=== PATIENT | female | born 1960 | race Caucasian/White ===

== ENCOUNTER 2018-11-24 15:23 | Emergency (ER) | payer BC ==
--- NOTE | 2018-11-24 16:48 | RADIOLOGY REPORT (SQ) ---
EXAM DESCRIPTION: CT HEAD WITHOUT COMPLETED DATE/TIME: 11/24/2018 4:36 pm REASON FOR STUDY: Stroke protocol - facial drop that began at 1000 COMPARISON: None. TECHNIQUE: Axial images acquired through the brain without intravenous contrast. Images reviewed wi th bone, brain and subdural windows. Additional sagittal and coronal reconstructions were generated. Images stored on PACS. All CT scanners at this facility use dose modulation, iterative reconstruction, and/or weight based d osing when appropriate to reduce radiation dose to as low as reasonably achievable (ALARA). [facility]: Dose Right [facility]: CareDose [facility]: Dose Right [facility]: Teradose 4D [facility]: Smart Echo it RADIATION DOSE: CT Rad equipment meets quality standard of care and radiation dose reduction techniq ues were employed. CTDIvol: 53.2 mGy. DLP: 964 mGy-cm. mGy. LIMITATIONS: None. FINDINGS: VENTRICLES: Normal size and contour. CEREBRUM: No masses. No hemorrhage. No midline shift. No evidence for acute infarction. Normal gra y/white matter differentiation. No areas of low density in the white matter. CEREBELLUM: No masses. No hemorrhage. No alteration of density. No evidence for acute infarction. EXTRAAXIAL SPACES: Mild age related prominence over the convexities. No hemorrhage or mass or shift. ORBITS AND GLOBE: No intra- or extraconal masses. Normal contour of globe without masses. CALVARIUM: No fracture. PARANASAL SINUSES: No fluid or mucosal thickening. SOFT TISSUES: No mass or hematoma. OTHER: No other significant finding. IMPRESSION: No acute intracranial abnormality. EVIDENCE OF ACUTE STROKE: NO. COMMENT: Quality ID # [id number]: Final reports with documentation of one or more dose reduction techniques (e.g., Automated exposure control, adjustment of the mA and/or kV according to patient size, use of iterative reconstruction technique) TECHNICAL DOCUMENTATION: JOB ID: [id number] [employer]- All Rights Reserved Reading location - IP/workstation name: [email or web address]
--- NOTE | 2018-11-24 16:49 | RADIOLOGY REPORT (SQ) ---
EXAM DESCRIPTION: CHEST SINGLE VIEW COMPLETED DATE/TIME: 11/24/2018 4:37 pm REASON FOR STUDY: Stroke protocol - facial drop that began at 1000 COMPARISON: None available EXAM PARAMETERS: NUMBER OF VIEWS: One view. TECHNIQUE: Single frontal radiographic view of the chest acquired. RADIATION DOSE: NA LIMITATIONS: None. FINDINGS: LUNGS AND PLEURA: No opacities, masses or pneumothorax. No pleural effusion. MEDIASTINUM AND HILAR STRUCTURES: No masses. Contour normal. HEART AND VASCULAR STRUCTURES: Heart normal in size. Normal vasculature. BONES: No acute findings. HARDWARE: None in the chest. OTHER: No other significant finding. IMPRESSION: No evidence of acute cardiopulmonary process. TECHNICAL DOCUMENTATION: JOB ID: [id number] [employer]- All Rights Reserved Reading location - IP/workstation name: [email or web address]
[2018-11-24 16:50] LABS: ABSOLUTE BASOPHILS # (AUTO) 0.1 10^3/uL (0.0-0.2); ABSOLUTE EOSINOPHILS # (AUTO) 0.3 10^3/uL (0.0-0.6); ABSOLUTE LYMPHOCYTES (AUTO) 3.9 10^3/uL (0.5-4.7); ABSOLUTE MONOCYTES (AUTO) 0.4 10^3/uL (0.1-1.4); ABSOLUTE NEUT (AUTO) 3.4 10^3/uL (1.7-8.2); BASOPHILS % (AUTO) 0.8 % (0-2); EOSINOPHILS % (AUTO) 3.3 % (0-6); HEMATOCRIT 44.3 % (36.0-47.0); HEMOGLOBIN 15.1 g/dL (12.0-15.5); LYMPHOCYTES % (AUTO) 47.8 % (13-45); MEAN CORPUSCULAR HEMOGLOBIN 30.6 pg (27.0-33.4); MEAN CORPUSCULAR VOLUME 90 fl (80-97); MONOCYTES % (AUTO) 5.4 % (3-13); PLATELET COUNT 309 10^3/uL (150-450); RED BLOOD COUNT 4.92 10^6/uL (3.72-5.28); RED CELL DISTRIBUTION WIDTH 13.3 % (11.5-14.0); SEGMENTED NEUTROPHILS % (AUTO) 42.7 % (42-78); TOTAL CELLS COUNTED % (AUTO) 100 %; WHITE BLOOD COUNT 8.1 10^3/uL (4.0-10.5)
[2018-11-24 17:01] LABS: INTERNATIONAL RATION (INR) 0.86; PROTHROMBIN TIME 12.2 SEC (11.4-15.4)
[2018-11-24 17:01] LABS: ALANINE AMINOTRANSFERASE 35 U/L (9-52); ALBUMIN 4.4 g/dL (3.5-5.0); ALKALINE PHOSPHATASE 91 U/L (38-126); ANION GAP 13 (5-19); ASPARTATE AMINO TRANSFERASE 25 U/L (14-36); BILIRUBIN,DIRECT 0.3 mg/dL (0.0-0.4); BILIRUBIN,TOTAL 1.2 mg/dL (0.2-1.3); BLOOD UREA NITROGEN 10 mg/dL (7-20); CALCIUM 9.7 mg/dL (8.4-10.2); CARBON DIOXIDE 24 mmol/L (22-30); CHLORIDE 104 mmol/L (98-107); CREATINE KINASE 77 U/L (30-135); GLUCOSE 126 mg/dL (75-110); POTASSIUM 3.7 mmol/L (3.6-5.0); SODIUM 140.6 mmol/L (137-145); TOTAL PROTEIN 7.8 g/dL (6.3-8.2)
[2018-11-24 17:02] LABS: PARTIAL THROMBOPLASTIN TIME 28.2 SEC (23.5-35.8)
[2018-11-24] MEDS ORDERED: ERYTHROMYCIN 0.5% OPH OINT 1 GM UNIT DOSE OS ONE (17:10)
[2018-11-24] MEDS ORDERED: ACYCLOVIR 800 MG TABLET PO ONE (17:10)
[2018-11-24] MEDS ORDERED: PREDNISONE 20 MG TABLET PO ONE (17:10)
[2018-11-24 17:13] LABS: CREATINE KINASE MB 0.48 ng/mL (<4.55); TROPONIN I < 0.012 ng/mL
--- NOTE | 2018-11-24 17:17 | ER Document Report ---
ED General - General Chief Complaint: Facial Droop Stated Complaint: WEAKNESS Time Seen by Provider: 11/24/18 16:59 TRAVEL OUTSIDE OF THE [place] IN LAST 30 DAYS: No - HPI Notes: Patient is a 58-year-old female that presents to the emergency department for chief complaint of left facial weakness and numbness. Patient states when she woke up this morning she had numbness to her left upper and lower face, and paralysis of her left upper and lower face. She denies any other symptoms including vision changes, extremity numbness and weakness, headache, fevers and chills. She does state that her left eye has been draining a copious amount of tears today. She denies injury to the eye. She denies any eye pain currently. She denies any exposure to ticks. She states she has been under a lot of stress recently because of the passing of her father. Past Medical History: Hypertension Past Surgical History: Right oophorectomy Social History: Denies drugs, alcohol and tobacco Family History: Reviewed and noncontributory for presenting illness Allergies: Reviewed, see documented allergy list. REVIEW OF SYSTEMS: CONSTITUTIONAL : No fever No chills No diaphoresis No recent illness EENT: No vision changes No congestion No sore throat CARDIOVASCULAR: No chest pain No palpitations RESPIRATORY: No shortness of breath No cough No difficulty breathing GASTROINTESTINAL: No abdominal pain No nausea No vomiting No diarrhea GENITOURINARY: No dysuria No hematuria No difficulty urinating MUSCULOSKELETAL: No back pain No leg pain No arm pain SKIN: No rashes No lesions LYMPHATIC: No swollen, enlarged glands. NEUROLOGICAL: No lightheadedness No headache weakness paresthesias PSYCHIATRIC: No anxiety No depression PHYSICAL EXAMINATION: Vital signs reviewed, nursing noted reviewed. GENERAL: Well-appearing, well-nourished and in no acute distress. HEAD: Atraumatic, normocephalic. EYES: Left periorbital paralysis, left conjunctival injection, extraocular movements intact. ENT: nares patent, oropharynx clear without exudates. Moist mucous membranes. NECK: Normal range of motion, supple without lymphadenopathy LUNGS: Breath sounds clear to auscultation bilaterally and equal. No wheezes rales or rhonchi. HEART: Regular rate and rhythm without murmurs ABDOMEN: Soft, nontender, normoactive bowel sounds. No rebound, guarding, or ri gidity. No masses appreciated. EXTREMITIES: Nontender, good range of motion, no pitting or edema. NEUROLOGICAL: Subjective numbness to left upper and lower face, left facial paralysis upper and lower, inability to close left eye. Normal motor function to the remainder of her body PSYCH: Normal mood, normal affect. SKIN: Warm, Dry, normal turgor, no rashes or lesions noted on exposed skin Past Medical History - Social History Smoking Status: Unknown if Ever Smoked Family History: Reviewed & Not Pertinent Patient has suicidal ideation: No Patient has homicidal ideation: No Renal/ Medical History: Denies: Hx Peritoneal Dialysis Physical Exam - Vital signs Vitals: Temp Pulse Resp BP Pulse Ox 97.8 F 89 22 H 153/94 H 98 11/24/18 16:00 11/24/18 16:00 11/24/18 16:00 11/24/18 16:00 11/24/18 16:00 Course - Re-evaluation Re-evalutation: 11/24/18 17:16 Vitals reviewed. Nursing notes reviewed. Patient had lab work and CT scan ordered in triage. Her CT brain is normal. Chest x-ray shows no acute process. Her CBC is also unremarkable. 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 She will be started on acyclovir and prednisone. Patient will be given erythromycin ointment for her left eye and the eye was taped closed to prevent further corneal injury. Patient will follow with ophthalmology and her primary care doctor for close reevaluation. She was counseled on return precautions and verbalized understanding. She is stable at discharge. Laboratory 11/24/18 11/24/18 11/24/18 15:00 15:00 15:00 WBC 8.1 RBC 4.92 Hgb 15.1 Hct 44.3 MCV 90 MCH 30.6 MCHC 34.0 RDW 13.3 Plt Count 309 Seg Neutrophils % 42.7 Lymphocytes % 47.8 H Monocytes % 5.4 Eosinophils % 3.3 Basophils % 0.8 Absolute Neutrophils 3.4 Absolute Lymphocytes 3.9 Absolute Monocytes 0.4 Absolute Eosinophils 0.3 Absolute Basophils 0.1 PT Cancelled INR Cancelled APTT Cancelled CK-MB (CK-2) 0.48 Troponin I < 0.012 11/24/18 16:48 WBC RBC Hgb Hct MCV MCH MCHC RDW Plt Count Seg Neutrophils % Lymphocytes % Monocytes % Eosinophils % Basophils % Absolute Neutrophils Absolute Lymphocytes Absolute Monocytes Absolute Eosinophils Absolute Basophils PT 12.2 INR 0.86 APTT 28.2 CK-MB (CK-2) Troponin I Chest X-Ray 11/24/18 16:26 IMPRESSION: No evidence of acute cardiopulmonary process. Head CT 11/24/18 16:26 IMPRESSION: No acute intracranial abnormality. EVIDENCE OF ACUTE STROKE: NO. - Vital Signs Vital signs: Temp Pulse Resp BP Pulse Ox 97.8 F 89 20 153/94 H 99 11/24/18 16:00 11/24/18 16:00 11/24/18 16:00 11/24/18 16:00 11/24/18 16:00 - Laboratory Result Diagrams: 11/24/18 15:00 11/24/18 15:00 Laboratory results interpreted by me: 11/24/18 15:00 Lymphocytes % 47.8 H - EKG Interpretation by Me Additional EKG results interpreted by me: 11/24/18 17:17 Interpreted by myself [id number]: Normal sinus rhythm, rate 92, normal axis, no ectopy, no STEMI Discharge - Discharge Clinical Impression: Bowser's palsy Condition: Stable Disposition: HOME, SELF-CARE Instructions: Bowser's Palsy ([facility]), Steroid Medication Additional Instructions: Please return to the emergency department if you have any worsening, or concern of your symptoms. Please return to the emergency department if you develop chest pain, difficulty breathing, severe abdominal pain, or ongoing vomiting. Please follow-up with your primary care physician in 2-3 days and any other recommended physicians. If prescribed, take all medications as directed. If you have any questions or concerns do not hesitate to return the emergency department for evaluation. Keep your eye taped closed as long as you are unable to completely blink. Follow with ophthalmology in the next 1-2 days for reevaluation. Follow-up with your primary care doctor or the one provided as recommended. Prescriptions: Acyclovir [Zovirax] 800 mg PO 5XD #35 tablet Erythromycin Base [Erythromycin Oph 1 Gm Oint Ud] 1 applic OS TID 7 Days tube Prednisone [Deltasone 20 mg Tablet] 2 tab PO DAILY 5 Days tablet Referrals: MISTI SAMUEL MD [ACTIVE STAFF] - Follow up in 3-5 days [facility] [Provider Group] - Follow up as needed
--- NOTE | 2018-11-24 17:21 | EKG REPORT ---
SEVERITY:- ABNORMAL ECG - SINUS RHYTHM POOR R WAVE PROGRESION LEADS V1 TO V6. : Confirmed by: Shanique London MD 24-Nov-2018 17:20:00
[2018-11-24] MEDS ORDERED: ONDANSETRON 4 MG TAB.RAPDIS PO ONE (17:32)
[2018-11-24 18:12] VITALS: BP 160/94
== END 2018-11-24 18:12 | disposition home or self-care (01) ==
LOC: ER 15:23
DX: G51.0 Bell's palsy (principal); R20.0 Anesthesia of skin
CPT/HCPCS: 93005; 99285; 36415; 82553; 82550; 85025; 85610; 85730; 80053; 84484; 71045; 70450; 93010; S0119; J7512; J3490